=== PATIENT | male | born 2005 | race African-American/Black ===

== ENCOUNTER 2024-12-23 11:57 | Emergency (ER) | payer OTHER ==
[~2024-12-23] VITALS: Ht 182.9 cm; Wt 75.0 kg
[2024-12-23] MEDS ORDERED: HOME MED LIST COMPLETE! XX SCH (13:10)
[2024-12-23 15:57] VITALS: BP 137/77; TEMP 98; O2SAT 99
== END 2024-12-23 16:02 | disposition short-term general hospital (02) ==
LOC: M ED 11:57
DX: S02.40FA Zygomatic fracture, left side, initial encounter for closed fracture (principal); S62.336A Displaced fracture of neck of fifth metacarpal bone, right hand, initial encounter for closed fracture; S00.83XA Contusion of other part of head, initial encounter; Y04.0XXA Assault by unarmed brawl or fight, initial encounter; J01.20 Acute ethmoidal sinusitis, unspecified; J01.10 Acute frontal sinusitis, unspecified; F17.200 Nicotine dependence, unspecified, uncomplicated; F10.10 Alcohol abuse, uncomplicated; Z88.0 Allergy status to penicillin; Y92.9 Unspecified place or not applicable; Y93.89 Activity, other specified; Y99.9 Unspecified external cause status